=== PATIENT | male | born 1970 | race Caucasian/White ===

== ENCOUNTER 2017-05-07 22:23 | Emergency (ER) | payer SELFPAY ==
[~2017-05-07] VITALS: Ht 177.8 cm; Wt 113.4 kg
[2017-05-07 23:23] LABS: Basophils # (auto) 0.1 uL; Basophils % (auto) 0.9 % (0.0-2.0); Eosinophils # (auto) 0.1 uL; Eosinophils % (auto) 1.4 % (0.0-7.0); Hematocrit 40.4 % (41.0-53.0); Hemoglobin 13.7 g/dL (13.5-17.5); Lymphocytes # (auto) 2.6 uL; Lymphocytes % (auto) 33.9 % (10.0-50.0); Mean Corpuscular Hgb Conc. 33.9 g/dL (32.0-36.0); Mean Corpuscular Volume 88.6 fL (80.0-100.0); Mean Platelet Volume 7.6 fL (6.9-10.8); Monocytes # (auto) 0.6 uL; Monocytes % (auto) 7.6 % (0.0-12.0); Neutrophils # (auto) 4.3 uL; Neutrophils % (auto) 56.2 % (37.0-80.0); Nucleated Red Blood Cells % 0.1 %; Platelet Count (auto) 294 10^3/uL (140-450); Red Cell Distribution Width 13.4 % (11.8-14.3); White Blood Cell 7.7 10^3/uL (4.4-10.8)
[2017-05-07 23:37] LABS: Albumin 3.8 g/dL (3.4-5.0); Anion Gap 11 (5-15); Aspartate Aminotransferase 20 U/L (15-37); BUN/Creatinine Ratio 14.1; Blood Urea Nitrogen 13 mg/dL (7-18); Calcium 8.6 mg/dL (8.5-10.1); Carbon Dioxide 20 mmol/L (21-32); Chloride 114 mmol/L (98-107); GFR African American 113 mL/min; GFR Non-African American 94 mL/min; Glucose 92 mg/dL (74-106); Magnesium 2.7 mg/dL (1.6-2.6); Potassium 4.2 mmol/L (3.5-5.1); Sodium 145 mmol/L (136-145)
[2017-05-07 23:42] LABS: Alkaline Phosphatase 87 U/L (45-117); Bilirubin, Total 0.3 mg/dL (0.2-1.0); Total Protein 7.4 g/dL (6.4-8.2)
[2017-05-08] MEDS ORDERED: LORazepam 0.5 MG TAB PO ONE (01:45)
[2017-05-08 07:37] VITALS: BP 139/97
[2017-05-08 07:37] LABS: Acetaminophen < 2.0 ug/mL (10-30)
[2017-05-08 07:39] LABS: Salicylate < 1.7 mg/dL (2.8-20.0)
== END 2017-05-08 16:09 | disposition home or self-care (01) ==
LOC: ER 22:29
DX: R45.851 Suicidal ideations (principal); R07.89 Other chest pain; I10 Essential (primary) hypertension; R44.3 Hallucinations, unspecified
CPT/HCPCS: 36415; 71010; 80053; 80307; 80329; 83735; 84484; 85025; 93005